=== PATIENT | male | born 1990 | race Caucasian/White ===

== ENCOUNTER 2022-03-24 12:06 | Emergency (ER) | payer OTHER, SELFPAY ==
[2022-03-24 12:19] VITALS: BP 125/71; PULSE 74; RESP 16; TEMP 36.8; O2SAT 100
--- NOTE | 2022-03-24 12:44 | ED.GENADULT ---
HPI - General Adult General Chief complaint: Headache Stated complaint: headache, eye pain, chills Time Seen by Provider: 03/24/22 12:40 Source: patient, RN notes reviewed and old records reviewed Mode of arrival: ambulatory Limitations: no limitations History of Present Illness HPI narrative: 31-year-old male presents to [facility] care with complaints of intermittent headache since last Thursday but greater intensity since awakening at 2am today with worse headache ever to the frontal area of his head. Patient state that he had chills and nausea and also it hurt to move his eyes and temp his am 99F. Patient states that he had a fever of 101F last Thursday which went away with increased fluids and Ibuprofen. Patient reports that he has been taking Tylenol and Ibuprofen intermittently since Thursday states did not take any on Thursday, did go fishing over the weekend. Patient reports that nausea is gone and prior to discharge before medication of Toradol patient reports headache 5/10. Patient reports that he had one Covid immunization did take 2 home Covid tests which were negative. MD complaint: headache,eye pain, chills Onset (ago): day(s) Location: head and eyes Severity scale (1-10): 5 Treatments prior to arrival: NSAID and other (Tylenol) Related Data Allergies Allergy/AdvReac Type Severity Reaction Status Date / Time No Known Allergies Allergy Verified 03/24/22 12:13 Review of Systems Review of Systems: CONSTITUTIONAL: Reports intermittent fevers, chills, or sweats. EYES: Denies visual changes, redness, or discharge., reports that his eyes hurt this morning when he awoke with severe headache ENT: Denies rhinorrhea, congestion, sore throat, or otalgia. CARDIOVASCULAR: Denies chest pain, palpitations, edema. RESPIRATORY: Denies cough or dyspnea. GASTROINTESTINAL: Denies abdominal pain, nausea this morning,no vomiting, or diarrhea. GENITOURINARY: Denies dysuria or hematuria. SKIN: Denies rash or itching. MUSCULOSKELETAL: Denies back pain, joint pain, or myalgia. NEUROLOGIC: Positive for headache, no numbness, or weakness. PSYCHIATRIC: Denies anxiety or depression. All systems reviewed & are unremarkable except as noted in HPI and below PMFSH Past Medical History Medical History (Updated 03/25/22 @ 14:14 by Kamilla Coleman NP) No significant past medical history Surgical History Surgical History (Updated 03/25/22 @ 14:13 by Kamilla Coleman NP) History of appendectomy Social History Social History (Updated 03/25/22 @ 14:12 by Kamilla Coleman NP) Smoking status: Never smoker Living arrangements: with family Gender identity (if verbalized by the patient): Male Comments At time of signature, agree with nursing past medical, surgical, social and family history. There is no relevant family history pertinent to the presenting complaint Exam Narrative: GENERAL: Well-appearing, well-nourished, and in no acute distress. HEAD: Normocephalic, atraumatic. EYES: PERRLA and EOMI.no drainage or redness of eyes, denies visual changes, no nystagmus ENT: Nares clear, no rhinorrhea or epistaxis. Mucous membranes moist.TM's normal with good light reflex, throat pink with no lesions or swelling. NECK: Supple. no lymphadenopathy, moves neck with no restriction, no nuchal rigidity CHEST: Clear to auscultation. No respiratory distress. HEART: Regular rate and rhythm. No murmur heard. Normal peripheral pulses. ABDOMEN: Soft, nontender, nondistended, normal active bowel sounds. EXTREMITIES: Normal range of motion. No edema. SKIN: Warm, dry, no rash. NEURO: No focal deficits. Alert and oriented x3. Course Course Emergency Course: Patient is aware of diagnosis, understands and agrees to treatment plan.? Anticipatory guidance given.? Patient agrees to follow-up as directed and is aware of reasons to seek care at the emergency department. Portions of this record may have been created with voice recognition software Level of Car
[2022-03-24] MEDS: KETOROLAC (*BKC) 60 MG/2 ML VIAL IM (13:22)
== END 2022-03-24 13:44 | disposition home or self-care (01) ==
PROVIDERS: Emergency Provider Registered Nurse
DX: R51.9 Headache, unspecified (principal); B34.9 Viral infection, unspecified
CPT/HCPCS: 87081; 87804; 87880; 96372; 99213; G0463; J1885

== ENCOUNTER → 2024-10-12 15:46 | Outpatient (CLI) | payer OTHER, SELFPAY ==
--- NOTE | ~2024-10-12 | XR_ITS ---
EXAMINATION: XR shoulder RT min 2V DATE: 10/12/2024 16:07 INDICATION: Anterior right shoulder and clavicle pain and tenderness TECHNIQUE: AP internally and externally rotated, AP oblique externally rotated and transscapular Y vi ews of the right shoulder were obtained. COMPARISON: None FINDINGS: Normal alignment. No fracture. Glenohumeral joint is normal. Acromioclavicular joint space is normal . There is mild erosive versus cystic change along the clavicular articular surface raising suspicion for distal clavicular osteolysis. Soft tissues are unremarkable. Visualized portion of the lungs are clear. 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 Reviewed, dictated and finalized at location A. 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
--- OUTSIDE RECORDS SUMMARY | 2024-10-12 15:49 | XMS_ITS | Clinical Summary ---
Author Organization [facility] Address [address] [place] [id number] Care Team Providers Care Front End Software Engineer Name Role Phone Unavailable Primary Care Provider Unavailabl e Social History Tobacco Use Types Packs/Day Years Used Date Smoking Tobacco: Never Assessed Sex and Gender Information Value Date Recorded Sex Assigned at Not on file Legal Sex Male 6:13 PM CDT Gender Identity Not on file Sexual Orientation Not on file Plan of Treatment Health Maintenance Due Date Last Done Comments Annual Physical 08/07/1991 Hepatitis C 2006 DTaP, Tdap and Td Vaccines ( 1 - Tdap) 08/07/2007 Hepatitis B Vaccines (1 of 3 - 19+ 3-dose series) 08/07/2007 COVID-19 Vaccine (2023-2 5 season) 2024 HPV Vaccines Aged Out No longer eligi ble based on patient's age to complete this topic Meningococcal B Vaccine Aged Out No l onger eligible based on patient's age to complete this topic Meningococcal Vaccine Aged Out No carlos kelsea eligible based on patient's age to complete this topic Pneumococcal Vaccine: Pediat rics (0 to 5 Years) and At-Risk Patients (6 to 49 Years) Aged Out No longer eligible b ased on patient's age to complete this topic RSV Immunizations Under 20 Months Aged Out No longer eligible based on patient's age to complete this topic
--- OUTSIDE RECORDS SUMMARY | 2024-10-12 15:49 | XMS_ITS | Referral Summary ---
Author Organization [facility] Address [address] [place] [address] Care Team Providers Care Certified Pedorthotist Name Role Phone No, Physician Primary Care Provider [phone] Allergies No known active allergies Medications No known medications Active Problems No known active problems Social History Tobacco Use Types Packs/Day Years Used Date Smoking Tobacco: Never Smokeless Tobacco: Never Tobacco Cessation:Counseling Given: Not Answered Personal Safety Answer Date Recorded Getting School Help Needed Not on file 08/01 Sex and Gender Information Value Date Recorded Sex Assigned at Not on file Legal Sex Male 2:59 PM PLATE ROLLER Gender Identity Not on file Sexual Orientation Not on file Last Filed Vital Signs Vital Sign Reading Time Taken Comments Blood Pressure 129/84 04/18/2022 1:07 PM PLATE ROLLER Pulse 67 04/18/2022 1:07 PM PLATE ROLLER Temperature 36.8 C (98.3 F) 04/18/2022 1:07 PM PLATE ROLLER Respiratory Rate 18 04/12/2022 3:00 PM PLATE ROLLER Oxygen Saturation 98% 04/12/2022 8:30 PM PLATE ROLLER Inhaled Oxygen Concentration - - Weight 61.2 kg (135 lb) 04/18/2022 1:07 PM PLATE ROLLER Height 170.2 cm (5' 7 ) 04/18/2022 1:07 PM PLATE ROLLER Body Mass Index 21.14 04/18/2022 1:07 PM PLATE ROLLER Plan of Treatment Not on file Insurance [facility] Care Teams Certified Pedorthotist Relationship Specialty Start Date End Date No, Physician PCP - General 04/12/22
--- OUTSIDE RECORDS SUMMARY | 2024-10-12 15:49 | XMS_ITS | Continuity of Care Document ---
Author Organization formerly [facility] Address [address] [place] [address] [address] [place] [address] Phone Care Team Providers Care Head Stock Operator Name Role Phone Hay OD, Sherwin Unavailable Unavailable Advance Directives Directive Yes / No Effective Date File Name No Information Encounters Encounter Description Practice Location Reason(s) For Visit Diagnoses Date Provider Providers Copied on Encounter [facility], [address] [place] [address] [address], [place], [place], [id number], [place] tel:[phone] [facility] No Information 1-200 6 Hay OD Sherwin. [address] , [address], [place], [address], [place]. tel:[phone] Family History Family Member Type Diagnosis Age At Onset No Information Payers Payer name Insurance type Covered republican ID Authoriza tion(s) No Information Social History Type Description Quantity Date Captured Comments Sex Male Smoking Status No Information Chief Complaint And Reason For Visit No Information Reason For Referral Reason For Referral No Information History Of Present Illness Encounter Date Complaint History Of Prese nt Illness No Information Functional Status Date Functional Assessmen t No Information Instructions Date Instruction Additional Infor mation No Information Assessments Type Assessment Date No Information Patient Care Teams Name Effective Dates (start - stop) Status Members No Information
--- OUTSIDE RECORDS SUMMARY | 2024-10-12 15:49 | XMS_ITS | Clinical Summary ---
Author Organization [facility] Address [address] [place] [address] Care Team Providers Care Tobacco Roller Name Role Phone No, Physician Primary Care Provider [phone] Allergies No known active allergies Medications No known medications Active Problems No known active problems Surgical History Surgery Date Site/Laterality Comments APPENDECTOMY Medical History Medical History Date Comments Childhood asthma Social History Tobacco Use Types Packs/Day Years Used Date Smoking Tobacco: Never Smokeless Tobacco: Never Tobacco Cessation:Counseling Given: Not Answered Personal Safety Answer Date Recorded Getting School Help Needed Not on file 08/01 Sex and Gender Information Value Date Recorded Sex Assigned at Not on file Legal Sex Male 2:59 PM NIGHT CLUB MANAGER Gender Identity Not on file Sexual Orientation Not on file Obstetrics History Last Filed Vital Signs Vital Sign Reading Time Taken Comments Blood Pressure 129/84 04/18/2022 1:07 PM NIGHT CLUB MANAGER Pulse 67 04/18/2022 1:07 PM NIGHT CLUB MANAGER Temperature 36.8 C (98.3 F) 04/18/2022 1:07 PM NIGHT CLUB MANAGER Respiratory Rate 18 04/12/2022 3:00 PM NIGHT CLUB MANAGER Oxygen Saturation 98% 04/12/2022 8:30 PM NIGHT CLUB MANAGER Inhaled Oxygen Concentration - - Weight 61.2 kg (135 lb) 04/18/2022 1:07 PM NIGHT CLUB MANAGER Height 170.2 cm (5' 7 ) 04/18/2022 1:07 PM NIGHT CLUB MANAGER Body Mass Index 21.14 04/18/2022 1:07 PM NIGHT CLUB MANAGER Plan of Treatment Health Maintenance Due Date Last Done Comments Depression Screening 1988 Hepatitis C Screening 1988 DTaP/Tdap/Td Vaccine (1 - Tdap) 08/07/1999 Varicella Vaccines (1 of 2 - 13+ 2-dose series) 2001 Hepatitis B Screening 2006 Regular Well Visit/Exam 18-64 2006 Influenza Vaccine (Season Ended) 2025 HPV Vaccines Aged Out No longer eligi ble based on patient's age to complete this topic Pneumococcal vaccine <65 Aged Out No longer eligible based on patient's age to complete this topic Insurance [facility] Care Teams Tobacco Roller Relationship Specialty Start Date End Date No, Physician PCP - General 04/12/22
== END ==
PROVIDERS: PCP Family Medicine; Visit Provider Family Medicine
DX: M25.511 Pain in right shoulder (principal); G89.29 Other chronic pain
CPT/HCPCS: 73030

== ENCOUNTER 2024-11-20 12:42 | Outpatient (CLI) | payer OTHER, SELFPAY ==
--- NOTE | ~2024-11-20 | MR_ITS ---
EXAMINATION: MR shoulder RT wo con DATE: 11/20/2024 13:48 INDICATION: Right shoulder pain TECHNIQUE: Magnetic resonance imaging (MRI) of the right shoulder was performed without intravenous c ontrast. Sequences included axial PD-weighted FS FSE, coronal oblique PD-weighted FS FSE, coronal obl ique T2-weighted FS FSE, sagittal PD-weighted FS FSE, and sagittal T1-weighted SE. COMPARISON: Right shoulder radiographs dated 10/12/2024 FINDINGS: Coracoacromial arch: The acromion undersurface is curved in morphology (type II). The coracoacromial ligament is normal. M ild acromioclavicular osteoarthritis. There is asymmetric erosions and subarticular edema along the c lavicular side of the joint space along with very small joint effusion and mild synovitis suggestive of distal clavicular osteolysis. Rotator cuff: The supraspinatus, infraspinatus and teres minor tendons are normal. The subscapularis tendon is norm al. Normal rotator cuff muscle bulk and signal. Biceps tendon, glenoid labrum and glenohumeral cartilage: Long head of the biceps tendon is normal. Mild glenohumeral osteoarthritis with mild partial thicknes s cartilage loss with smooth chondral surface at the central to anterosuperior glenoid and small mackenzie inal osteophytes along the posterior to posterior superior rim of the glenoid. Small shallow tear jose ng the chondral labral interface of the posterior superior glenoid labrum. Fluid: Physiologic amount of fluid in the glenohumeral joint and biceps tendon sheath. No loose osteochondr al bodies. Small amount of fluid in the subacromial/subdeltoid bursa consistent with mild bursitis. Bones: No fracture or pathologic marrow replacing process. IMPRESSION: 1. Mild acromioclavicular osteoarthritis with asymmetric erosions and subarticular edema-like signal change at the lateral head of the clavicle consistent with distal clavicular osteolysis. 2. Mild glenohumeral osteoarthritis with small shallow tear at the posterior superior glenoid labrum. 3. Mild subacromial/subdeltoid bursitis. Reviewed, dictated and finalized at location A. IMPRESSION: 1. Mild acromioclavicular osteoarthritis with asymmetric erosions and subarticu lar edema-like signal change at the lateral head of the clavicle consistent wit h distal clavicular osteolysis. 2. Mild glenohumeral osteoarthritis with small shallow tear at the posterior rey perior glenoid labrum. 3. Mild subacromial/subdeltoid bursitis.
== END 2024-11-20 12:43 | disposition home or self-care (01) ==
PROVIDERS: PCP Family Medicine; Visit Provider Family Medicine
DX: M19.011 Primary osteoarthritis, right shoulder (principal); M75.51 Bursitis of right shoulder
CPT/HCPCS: 73221